=== PATIENT | male | born 1955 | race Two or more races ===

== ENCOUNTER 2023-09-21 16:09 | Emergency (ER) | payer OTHER ==
[~2023-09-21] VITALS: Ht 177.8 cm; Wt 97.5 kg
[2023-09-21] MEDS ORDERED: CRESTOR10 MG PO (16:15)
[2023-09-21] MEDS ORDERED: TOPROL XL25 M1 (16:15)
== END 2023-09-21 20:12 | disposition home or self-care (01) ==
LOC: ER 16:09
DX: S82.61XA Displaced fracture of lateral malleolus of right fibula, initial encounter for closed fracture (principal); W18.30XA Fall on same level, unspecified, initial encounter; Y93.9 Activity, unspecified; Y92.9 Unspecified place or not applicable; Y99.9 Unspecified external cause status
CPT/HCPCS: 73560; 73600; 73620; 96372; 99284; J1885